=== PATIENT | female | born 2000 | race Asian ===

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

== ENCOUNTER 2019-03-21 06:18 | Emergency (ER) | payer MEDICAID, OTHER ==
[~2019-03-21] VITALS: Ht 152.4 cm; Wt 54.5 kg
[~2019-03-21 06:18] MED LIST: ETON68IM3 SD
[2019-03-21] MEDS ORDERED: FLUORESCEIN SODIUM 1 MG STRIP OU ONE (07:15)
[2019-03-21] MEDS ORDERED: POLYMYXIN B/TRIMETHOPRIM 10 ML OPHTHALMIC SOLUTION OU ONE (08:30)
[2019-03-21 08:53] VITALS: BP 139/82
[2019-03-21] MEDS ORDERED: IBUPROFEN 400 MG TABLET PO ONE (09:00)
== END 2019-03-21 09:05 | disposition home or self-care (01) ==
LOC: EMS 06:21
DX: H10.89 Other conjunctivitis (principal); B99.8 Other infectious disease; Z91.018 Allergy to other foods; Z79.899 Other long term (current) drug therapy

== ENCOUNTER 2022-04-17 10:33 | Emergency (ER) | payer MEDICAID, OTHER ==
[~2022-04-17] VITALS: Ht 157.5 cm; Wt 61.4 kg
[2022-04-17 10:37] VITALS: BP 119/62
== END 2022-04-17 13:36 | disposition left against medical advice (07) ==
LOC: EMS 10:33
DX: R51.9 Headache, unspecified (principal); Z53.21 Procedure and treatment not carried out due to patient leaving prior to being seen by health care provider
CPT/HCPCS: 84703

== ENCOUNTER 2023-11-02 05:31 | Emergency (ER) | payer OTHER ==
[~2023-11-02] VITALS: Ht 162.6 cm; Wt 65.9 kg
[~2023-11-02 05:31] MED LIST changes: -ETON68IM3 SD; +ETON68IM4 SD
[2023-11-02 05:34] VITALS: TEMP 98.1
[2023-11-02 05:57] LABS: APPEARANCE,URINE HAZY (CLEAR); BILIRUBIN,URINE NEGATIVE (NEGATIVE); COLOR,URINE LIGHT YELLOW (YELLOW); GLUCOSE, URINE (UA) NEGATIVE (NEGATIVE); HCG,QUAL URINE NEGATIVE (NEGATIVE); KETONES,URINE NEGATIVE (NEGATIVE); LEUKOCYTE ESTERASE ,URINE MODERATE (NEGATIVE); NITRATE,URINE POSITIVE (NEGATIVE); OCCULT BLOOD,URINE SMALL (NEGATIVE); PH,URINE 6.5 (5.0-8.0); PROTEIN,URINE NEGATIVE (NEGATIVE); UROBILINOGEN,URINE <=1.0 mg/dL (<=1.0)
[2023-11-02 06:32] VITALS: BP 132/100; PULSE 108; RESP 20
[2023-11-02] MEDS ORDERED: SULFAMETHOX/TRIMETH DS 800-160 MG/TABLET PO ONE (06:45)
[2023-11-02] MEDS ORDERED: METHOCARBAMOL 500 MG TABLET PO ONE (06:45)
[2023-11-02] MEDS ORDERED: KETOROLAC TROMETHAMINE 60 MG/2 ML VIAL IM ONE (06:45)
[2023-11-02] MEDS ORDERED: IBUP-1492 PO (07:03)
[2023-11-02] MEDS ORDERED: METH-659 PO (07:04)
[2023-11-02 07:12] LABS: BACTERIA,URINE Many /HPF (None Seen); SQUAMOUS EPITHELIAL CELL,UR Few /LPF (None Seen)
[2023-11-02] MEDS ORDERED: SULF-261 PO (07:14)
== END 2023-11-02 07:25 | disposition home or self-care (01) ==
LOC: EMS 05:33
DX: S39.012A Strain of muscle, fascia and tendon of lower back, initial encounter (principal); N39.0 Urinary tract infection, site not specified; F17.210 Nicotine dependence, cigarettes, uncomplicated; F12.90 Cannabis use, unspecified, uncomplicated; F15.90 Other stimulant use, unspecified, uncomplicated; Z91.010 Allergy to peanuts; X58.XXXA Exposure to other specified factors, initial encounter; Y93.89 Activity, other specified; Y92.89 Other specified places as the place of occurrence of the external cause; Y99.8 Other external cause status
CPT/HCPCS: 99283; 81001; 84703; 87086; 87186; 96372; J1885

== ENCOUNTER 2023-11-17 08:07 | Emergency (ER) | payer OTHER ==
[~2023-11-17] VITALS: Ht 153.7 cm; Wt 63.6 kg
[~2023-11-17 08:07] MED LIST changes: +IBUP-1492 PO; +METH-659 PO; +SULF-261 PO
[2023-11-17 08:13] VITALS: BP 121/70; PULSE 103; RESP 16; TEMP 97.9
== END 2023-11-17 11:21 | disposition left against medical advice (07) ==
LOC: EMS 08:07
DX: M54.50 Low back pain, unspecified (principal); Z53.21 Procedure and treatment not carried out due to patient leaving prior to being seen by health care provider
CPT/HCPCS: 99281; Z7502